=== PATIENT | female | born 1995 | race Two or more races ===

== ENCOUNTER 2024-10-04 02:19 | Emergency (ER) | payer OTHER ==
[~2024-10-04] VITALS: Ht 165.1 cm; Wt 220.0 kg
[~2024-10-04 02:19] MED LIST: ONDA-104 PO
[2024-10-04 02:23] VITALS: BP 123/72; PULSE 77; RESP 15; TEMP 98.4; O2SAT 100
[2024-10-04] MEDS ORDERED: AMOX250C4 PO (02:48)
[2024-10-04] MEDS ORDERED: TRAM50TA5 PO (02:48)
[2024-10-04] MEDS: AMOXICILLIN TRIHYDRATE 250 MG CAPSULE PO ONE (03:16)
[2024-10-04] MEDS: KETOROLAC TROMETHAMINE 30 MG/ML VIAL IM ONE (03:16)
== END 2024-10-04 03:16 | disposition home or self-care (01) ==
LOC: EMS 02:19
DX: H60.91 Unspecified otitis externa, right ear (principal); H66.91 Otitis media, unspecified, right ear; I10 Essential (primary) hypertension
CPT/HCPCS: 99283; 96372; J1885